=== PATIENT | female | born 1950 | race African-American/Black ===

== ENCOUNTER 2025-02-14 10:34 | Outpatient (CLI) | payer MEDICARE | END 2025-02-14 10:35 | disposition home or self-care (01) | LOC: BICMAMMO 10:34 | PROVIDERS: ATTEND Nurse Practitioner Family | DX: Z12.31 Encounter for screening mammogram for malignant neoplasm of breast (principal); Z78.0 Asymptomatic menopausal state; Z80.3 Family history of malignant neoplasm of breast | CPT/HCPCS: 77063; 77067; 77080 ==